=== PATIENT | female | born 1995 | race Caucasian/White ===

== ENCOUNTER 2018-01-25 19:43 | Emergency (ER) | payer OTHER ==
[~2018-01-25] VITALS: Ht 154.9 cm; Wt 40.4 kg
[2018-01-25 19:45] VITALS: BP 111/85
[2018-01-25] MEDS ORDERED: OMNICEF300 MG PO (20:37)
== END 2018-01-25 20:41 | disposition home or self-care (01) ==
LOC: ED 19:43
DX: J02.9 Acute pharyngitis, unspecified (principal)

== ENCOUNTER 2018-04-01 22:40 | Emergency (ER) | payer OTHER ==
[~2018-04-01] VITALS: Ht 152.4 cm; Wt 40.8 kg
[~2018-04-01 22:40] MED LIST: OMNICEF300 MG PO
[2018-04-01 23:47] LABS: BASO % 0.5 % (0.0-1.0); EOS # 0.1 10*3/uL (0.0-0.4); EOS % 0.8 % (1.0-4.0); HEMATOCRIT 40.7 % (37.0-47.0); HEMOGLOBIN 12.9 g/dl (12.0-16.0); LYMPH # 2.6 10*3/uL (1.3-4.4); LYMPH % 30.9 % (27.0-41.0); MEAN CELL VOLUME 82.4 fl (81.0-99.0); MEAN CORPUSCULAR HGB 26.1 pg (27.0-31.0); MEAN CORPUSCULAR HGB CONC 31.7 g/dl (33.0-37.0); MEAN PLATELET VOLUME 10.2 fl (9.6-12.3); MONO # 0.7 10*3/uL (0.1-1.0); MONO % 8.8 % (3.0-9.0); NEUT # 4.9 10*3/uL (2.3-7.9); NEUT % 58.8 % (47.0-73.0); PLATELET COUNT AUTOMATED 287 10*3/uL (130-400); RED BLOOD COUNT 4.94 10*6/uL (4.10-5.10); RED CELL DISTRI WIDTH 13.2 % (0-14.5); WHITE BLOOD COUNT 8.3 10*3/uL (4.8-10.8)
[2018-04-02 00:05] LABS: ALBUMIN 4.4 gm/dl (3.1-4.5); ALKALINE PHOSPHATASE 71 U/L (45-117); BUN 11 mg/dl (7-24); CHLORIDE 106 mmol/L (98-107); CREATININE 0.77 mg/dL (0.55-1.02); POTASSIUM 3.7 mmol/L (3.5-5.1); SGOT/AST 13 IU/L (3-35); SGPT/ALT 17 U/L (12-78); SODIUM 137 mmol/L (136-145); TOTAL PROTEIN 8.4 gm/dL (6.4-8.2)
[2018-04-02 00:09] LABS: BILIRUBIN NEGATIVE (NEGATIVE); BLOOD NEGATIVE (NEGATIVE); CLARITY CLEAR (CLEAR); COLOR YELLOW (YELLOW); GLUCOSE NEGATIVE (NEGATIVE); KETONE NEGATIVE (NEGATIVE); LEUKO ESTERASE NEGATIVE (NEGATIVE); NITRITE NEGATIVE (NEGATIVE); PH 6.5 (5.0-9.0); UROBILINOGEN 0.2 E.U./dl (0.2-1.0)
[2018-04-02 00:22] LABS: RBC 0-2 rbc/hpf (0-2); WBC 0-2 wbc/hpf (0-5)
[2018-04-02 01:48] VITALS: BP 118/77
[2018-04-02 02:53] LABS: LIPASE 111 U/L (73-393)
[2018-04-02 02:55] LABS: BETA-HCG, QUANT < 1.0 mIU/mL (1-3)
== END 2018-04-02 03:10 | disposition short-term general hospital (02) ==
LOC: ED 22:40
PROVIDERS: Nurse Practitioner
DX: R19.03 Right lower quadrant abdominal swelling, mass and lump (principal); R19.04 Left lower quadrant abdominal swelling, mass and lump; Z79.2 Long term (current) use of antibiotics

== ENCOUNTER → 2018-05-02 | Outpatient (CLI) | payer OTHER ==
[2018-05-02 19:26] LABS: ACT PARTIAL THROMBO TIME 31.9 SECONDS (20.8-31.5); INTERNATIONAL NORM RATIO 1.1 (2.0-3.5)
== END | disposition home or self-care (01) ==
LOC: LAB 05-01 17:34
DX: Z01.818 Encounter for other preprocedural examination (principal); R19.00 Intra-abdominal and pelvic swelling, mass and lump, unspecified site

== ENCOUNTER → 2018-11-25 | Outpatient (CLI) | payer OTHER ==
[2018-11-25 08:07] LABS: HEMOGLOBIN 11.9 g/dl (12.0-16.0); MEAN CELL VOLUME 83.9 fl (81.0-99.0); MEAN CORPUSCULAR HGB 26.3 pg (27.0-31.0); MEAN CORPUSCULAR HGB CONC 31.3 g/dl (33.0-37.0); MEAN PLATELET VOLUME 10.8 fl (9.6-12.3); RED BLOOD COUNT 4.53 10*6/uL (4.10-5.10); RED CELL DISTRI WIDTH 13.6 % (0-14.5); WHITE BLOOD COUNT 5.2 10*3/uL (4.8-10.8)
[2018-11-25 08:27] LABS: BUN 11 mg/dl (7-24); CHLORIDE 108 mmol/L (98-107); CHOLESTEROL 119 mg/dL (<200); CREATININE 0.84 mg/dL (0.55-1.02); SGOT/AST 11 IU/L (3-35); SGPT/ALT 14 U/L (12-78); SODIUM 140 mmol/L (136-145); TOTAL PROTEIN 7.7 gm/dL (6.4-8.2); TRIGLYCERIDES 67 mg/dl (<150); VLDL CHOLESTEROL 13 mg/dL (6-40)
[2018-11-25 08:34] LABS: ALKALINE PHOSPHATASE 63 U/L (45-117); FREE T4 1.06 ng/dl (0.76-1.46); HDL CHOLESTEROL 89 mg/dl (40-60); LDL CHOLESTEROL 17 mg/dL (9-159)
[2018-11-25 09:39] LABS: VITAMIN D, 25-HYDROXY 22.7 ng/mL (30-100)
[2018-11-26 16:12] LABS: t-TRANSGLUTAMINASE (tTG) IgG <2 U/mL (0-5)
[2018-11-26 17:06] LABS: ENDOMYSIAL ANTIBODY IgA Negative (Negative)
== END | disposition home or self-care (01) ==
LOC: LAB 07:14
PROVIDERS: Family Medicine
DX: Z13.220 Encounter for screening for lipoid disorders (principal); E55.9 Vitamin D deficiency, unspecified; R53.83 Other fatigue; R19.7 Diarrhea, unspecified; R63.4 Abnormal weight loss; L65.9 Nonscarring hair loss, unspecified

== ENCOUNTER → 2020-07-18 | Outpatient (CLI) | payer OTHER ==
[2020-07-18 12:58] LABS: HEMATOCRIT 38.7 % (37.0-47.0); MEAN CELL VOLUME 83.8 fl (81.0-99.0); MEAN PLATELET VOLUME 10.5 fl (9.6-12.3); RED BLOOD COUNT 4.62 10*6/uL (4.10-5.10); RED CELL DISTRI WIDTH 13.5 % (0-14.5); WHITE BLOOD COUNT 6.7 10*3/uL (4.8-10.8)
[2020-07-18 13:23] LABS: BUN 8 mg/dl (7-24); CHLORIDE 110 mmol/L (98-107); CHOLESTEROL 120 mg/dL (<200); CREATININE 0.69 mg/dL (0.55-1.02); POTASSIUM 3.7 mmol/L (3.5-5.1); SGOT/AST 10 IU/L (3-35); SGPT/ALT 16 U/L (12-78); SODIUM 139 mmol/L (136-145); TRIGLYCERIDES 51 mg/dl (<150); VLDL CHOLESTEROL 10 mg/dL (6-40)
[2020-07-18 13:31] LABS: ALKALINE PHOSPHATASE 56 U/L (45-117); FREE T4 0.92 ng/dl (0.76-1.46); HDL CHOLESTEROL 96 mg/dl (40-60); LDL CHOLESTEROL 14 mg/dL (9-159); TOTAL PROTEIN 7.6 gm/dL (6.4-8.2)
[2020-07-18 13:32] LABS: VITAMIN D, 25-HYDROXY 25.2 ng/mL (30-100)
[2020-07-19 09:07] LABS: HEP B CORE AB, IGM Negative (Negative); HEPATITIS B SURFACE AG Negative (Negative); HEPATITIS C VIRUS ANTIBODY <0.1 s/co (0.0-0.9)
[2020-07-19 12:07] LABS: RHEUMATOID ARTHRITIS FACTOR <10.0 IU/mL (0.0-13.9)
[2020-07-25 15:06] LABS: HLA-B27 ANTIGEN Negative (.)
== END | disposition home or self-care (01) ==
LOC: LAB 12:18
PROVIDERS: ATTEND Family Medicine
DX: M47.816 Spondylosis without myelopathy or radiculopathy, lumbar region (principal); M54.9 Dorsalgia, unspecified; M25.50 Pain in unspecified joint; M25.511 Pain in right shoulder; R20.2 Paresthesia of skin; E55.9 Vitamin D deficiency, unspecified; R53.83 Other fatigue; E53.8 Deficiency of other specified B group vitamins; Z79.899 Other long term (current) drug therapy

== ENCOUNTER 2020-12-21 14:08 | Emergency (ER) | payer OTHER ==
[~2020-12-21] VITALS: Ht 152.4 cm; Wt 41.7 kg
[2020-12-21 14:24] VITALS: BP 114/79
[2020-12-21 14:56] LABS: BILIRUBIN Negative (Negative); BLOOD 3+ (Negative); CLARITY Cloudy (Clear); COLOR Dark Yellow (Yellow); GLUCOSE Negative (Negative); KETONE Negative (Negative); LEUKO ESTERASE 3+ (Negative); NITRITE Positive (Negative); SPECIFIC GRAVITY <= 1.005 (1.001-1.030)
[2020-12-21 15:19] LABS: BACTERIA 2+; RBC 31-40 rbc/hpf (0-2); WBC TNTC wbc/hpf (0-5)
[2020-12-21] MEDS ORDERED: SEPTDS PO (15:55)
[2020-12-21] MEDS ORDERED: PYRIDIUM200 M1 PO (15:55)
== END 2020-12-21 16:04 | disposition home or self-care (01) ==
LOC: ED 14:08
PROVIDERS: Emergency Medicine
DX: N39.0 Urinary tract infection, site not specified (principal); Z79.2 Long term (current) use of antibiotics

== ENCOUNTER → 2023-03-01 | Outpatient (CLI) | payer OTHER ==
[~2023-03-01] MED LIST changes: +PYRIDIUM200 M1 PO; +SEPTDS PO
== END | disposition home or self-care (01) ==
LOC: LAB 17:00
PROVIDERS: ATTEND Family Medicine
DX: M54.50 Low back pain, unspecified (principal)

== ENCOUNTER 2024-02-19 19:12 | Emergency (ER) | payer SELFPAY ==
[~2024-02-19] VITALS: Ht 152.4 cm; Wt 40.8 kg
[~2024-02-19 19:12] MED LIST changes: +CEFUROXIME AXE250 MG PO; +FERROUS SULFAT325 MG PO
[2024-02-19] MEDS ORDERED: SODIUM CHLORIDE 0.9% 1,000 ML IV ONE (20:20)
[2024-02-19 20:38] LABS: BASO # 0.1 10*3/uL (0.0-0.1); BASO % 0.5 % (0.0-1.0); EOS % 0.1 % (1.0-4.0); HEMATOCRIT 38.1 % (37.0-47.0); LYMPH # 1.4 10*3/uL (1.3-4.4); LYMPH % 12.6 % (27.0-41.0); MEAN CELL VOLUME 76.7 fl (81.0-99.0); MEAN CORPUSCULAR HGB 23.9 pg (27.0-31.0); MEAN CORPUSCULAR HGB CONC 31.2 g/dl (33.0-37.0); MONO # 0.6 10*3/uL (0.1-1.0); MONO % 5.5 % (3.0-9.0); NEUT % 80.9 % (47.0-73.0); PLATELET COUNT AUTOMATED 378 10*3/uL (130-400); RED BLOOD COUNT 4.97 10*6/uL (4.10-5.10); RED CELL DISTRI WIDTH 15.5 % (0-14.5); WHITE BLOOD COUNT 11.1 10*3/uL (4.8-10.8)
[2024-02-19 21:00] LABS: ALKALINE PHOSPHATASE 74 U/L (46-116); BUN 8 mg/dl (9-23); CHLORIDE 102 mmol/L (98-107); LIPASE 28 U/L (12-53); POTASSIUM 3.5 mmol/L (3.4-5.1); SGPT/ALT 8 U/L (5-49); TOTAL PROTEIN 8.3 gm/dL (6.0-8.0)
[2024-02-19] MEDS ORDERED: Ondansetron Hydrochloride 4 MG/2 ML VIAL IV ONE (21:15)
[2024-02-19 23:54] VITALS: BP 103/58
== END 2024-02-19 23:54 | disposition home or self-care (01) ==
LOC: ED 19:12
PROVIDERS: Internal Medicine
DX: R10.9 Unspecified abdominal pain (principal); E87.1 Hypo-osmolality and hyponatremia; D50.9 Iron deficiency anemia, unspecified; R14.0 Abdominal distension (gaseous); R11.0 Nausea